=== PATIENT | female | born 1935 | race Caucasian/White ===

== ENCOUNTER 2019-05-08 12:26 | Outpatient (CLI) | payer MEDICARE ==
[~2019-05-08 12:26] MED LIST: AMIO200T61 PO; CEPH250T PO; COR3.125T PO; IBAN150T16 PO; LANS15CA10 PO; LEVO100T46 PO; MULT-1085 PO; RIVA10TA PO; SIMV10TA2 PO; TRAM50TA2 PO; [UNRECOGNIZED DRUG - CODE] PO
[2019-05-08 13:05] LABS: TOTAL HEMOGLOBIN 14.4 G/dl (12.0-16.0)
== END 2019-05-08 23:59 | disposition home or self-care (01) ==
LOC: RT 12:26
PROVIDERS: ATTEND Internal Medicine Cardiovascular Disease
DX: R06.02 Shortness of breath (principal); Z79.899 Other long term (current) drug therapy; Z95.0 Presence of cardiac pacemaker
CPT/HCPCS: 71046; 85018; 94010; 94727; 94729